=== PATIENT | female | born 1945 | race Caucasian/White ===

== ENCOUNTER 2017-02-06 19:14 | Emergency (ER) | payer OTHER ==
[2017-02-06] MEDS: ACETAMINOPHEN 500 MG TAB PO (22:25)
[2017-02-06] MEDS: AZITHROMYCIN 250 MG TAB PO (22:26)
== END 2017-02-06 23:28 | disposition home or self-care (01) ==
LOC: FTE 19:14
DX: J06.9 Acute upper respiratory infection, unspecified (principal); I10 Essential (primary) hypertension
CPT/HCPCS: 99284